=== PATIENT | female | born 1995 | race Caucasian/White ===

== ENCOUNTER 2019-08-20 19:50 | Emergency (ER) | payer SELFPAY ==
[2019-08-20] MEDS ORDERED: Lidocaine 1% w/Epinephrine 1:100K 20 ML VIAL ONE (21:00)
== END 2019-08-20 21:38 | disposition home or self-care (01) ==
LOC: ERS 19:50
DX: L02.01 Cutaneous abscess of face (principal); F41.9 Anxiety disorder, unspecified; F32.9 Major depressive disorder, single episode, unspecified; F17.210 Nicotine dependence, cigarettes, uncomplicated; Z79.899 Other long term (current) drug therapy
CPT/HCPCS: 10060; 87070; 87205; J2001

== ENCOUNTER 2019-08-27 12:32 | Emergency (ER) | payer SELFPAY ==
[2019-08-27] MEDS ORDERED: Lidocaine 1% (PF) 30 ML VIAL ONE (13:29)
== END 2019-08-27 14:25 | disposition home or self-care (01) ==
LOC: ERS 12:32
DX: M27.2 Inflammatory conditions of jaws (principal); F41.9 Anxiety disorder, unspecified; F32.9 Major depressive disorder, single episode, unspecified; F17.210 Nicotine dependence, cigarettes, uncomplicated; Z79.899 Other long term (current) drug therapy
CPT/HCPCS: 10060; J2001